=== PATIENT | male | born 1975 | race Caucasian/White ===

== ENCOUNTER 2016-11-21 00:58 | Emergency (ER) | payer OTHER | END 2016-11-21 04:43 | disposition left against medical advice (07) | LOC: CED 00:58 | DX: Z53.21 Procedure and treatment not carried out due to patient leaving prior to being seen by health care provider (principal) ==

== ENCOUNTER 2016-11-23 01:00 | Inpatient (IN) | payer OTHER ==
--- NOTE | ~2016-11-23 | PN ---
Unit #: [id number] #: [id number] Patient: EMRE CLAY [id number] [facility] [address] [place] [address] [id number] I MR#: [id number] NAME: EMRE CLAY ROOM: [facility] Age: 41 Sex: M Admission Date: 11/23/2016 : 1975 Attending Physician: Jose G Hinton M.D. Admitting Physician: Jose Ames PROGRESS NOTES DATE 11/28/2016 DISCUSSION Mr. Emre Clay is a 41-year-old male seen on November 28, 2016. Patient continues to report psychotic symptoms, reported voices telling him to harm himself, trouble sleeping, anxiety, agitation, and restlessness of his legs. Complete review of systems is unremarkable. MENTAL STATUS EXAMINATION General Appearance: Patient was dressed casually. Attention span and concentration, fair. Oriented in place and person. Mood and affect, sad, dysphoric, labile. Speech, monotone. Thought process, concrete. Patient denied any thoughts of harming self or others but reported having voices telling him to harm himself. Isolative, guarded. Poor hygiene and grooming. Withdrawn. Recent and remote memory, poor. Insight and judgment, poor. DIAGNOSES Psychosis not otherwise specified, rule out schizophrenia, chronic, paranoid type. ASSESSMENT Advised to continue with current medication. Will plan to consider Zyprexa if needed, add Thorazine 100 mg at bedtime for psychosis and sleep, Requip 1 mg twice daily, and continue with Cogentin. If needed, consider further adjustment of medication. Dictated by... Jose Ames/jesus TD: 11/29/2016 15:52 JOB #: [id number] Unit #: [id number] #: [id number] Patient: EMRE CLAY PROGRESS NOTES Page 1 of 1 X Jose G Hinton MD PROGRESS NOTE
--- NOTE | ~2016-11-23 | PN ---
Unit #: [id number] #: [id number] Patient: EMRE CLAY [id number] [facility] [address] [place] [address] [id number] I MR#: [id number] NAME: EMRE CLAY ROOM: 31 Age: 41 Sex: M Admission Date: 11/23/2016 : 1975 Attending Physician: Jose G Hinton M.D. Admitting Physician: Jose G Hinton M.D. Primary Care Physician: Primary Care Physician Becca MERINO PROGRESS NOTES DATE 12/01/2016 DISCUSSION Emre Clay is a 41-year-old male seen on 12/01/2016. Patient interviewed. Chart reviewed. Obtained information from nursing staff. Patient compliant, cooperative. Mood sad, dysphoric, flat affect, withdrawn, isolative. Patient reported voices are getting better, making progress. Compliant with medication. Complete review of system unremarkable. MENTAL STATUS EXAMINATION General appearance, patient dressed in hospital attire, isolative, flat affect. Sad, dysphoric mood. Oriented in place and person. Mood and affect sad, dysphoric, flat. Speech monotone. Thought process concrete. Patient denied any thoughts of harming self or others but guarded. Still having command hallucination but getting better. Recent and remote memory poor. Insight and judgement poor. DIAGNOSES 1. Psychosis NOS. 2. Schizophrenia, chronic paranoia type. ASSESSMENT/PLAN Advised to continue with current medication and therapeutic protocol. If needed, consider further adjustment of medication. Dictated by... Jose Ames/tanvir TD: 12/02/2016 22:03 JOB #: [id number] Unit #: [id number] #: [id number] Patient: EMRE CLAY PROGRESS NOTES Page 1 of 1 X Jose G Hinton MD PROGRESS NOTE
--- NOTE | ~2016-11-23 | PN ---
Unit #: [id number] #: [id number] Patient: EMRE CHAMPAGNE [id number] [facility] [address] [place] [address] [id number] I MR#: [id number] NAME: EMRE CHAMPAGNE ROOM: [facility] Age: 41 Sex: M Admission Date: 11/23/2016 : 1975 Attending Physician: Jose G Hinton M.D. Admitting Physician: Jose G Hinton M.D. Primary Care Physician: Primary Care Physician Becca THAO NOTES DATE 12/05/2016 DISCUSSION Emre is a 41-year-old male, seen on 12/05/2016. The patient interviewed, chart reviewed, and obtained information from the nursing staff. The patient was compliant and cooperative, able to maintain safe behavior, reports mood is better, decrease in anxiety, depression, hallucinations. No side effects from medication. Vital signs stable, 98.6, 115, 20, and 122/74. REVIEW OF SYSTEMS Complete review of systems unremarkable. MENTAL STATUS EXAMINATION General appearance: Patient dressed casually. Attention span and concentration, fair. Oriented in place and person. Mood and affect, labile. Speech, monotone. Thought process, concrete. The patient denied any thoughts of harming self or others. Recent and remote memory, poor. Insight and judgment, poor. DIAGNOSES 1. Psychosis, NOS. 2. Bipolar mood disorder, NOS. 3. Rule out schizophrenia, chronic paranoid type. ASSESSMENT/PLAN Advised to continue with the current medication and therapeutic protocol, with a plan to consider discharge next week and follow up in outpatient program. Dictated by... Jose Ames/kathi TD: 12/07/2016 06:12 JOB #: [id number] Unit #: [id number] #: [id number] Patient: EMRE CHAMPAGNE PROGRESS NOTES Page 1 of 1 X Jose G Hinton MD PROGRESS NOTE
--- NOTE | ~2016-11-23 | PN ---
Unit #: [id number] #: [id number] Patient: EMRE CHAMPAGNE [id number] [facility] [address] [place] [address] [id number] I MR#: [id number] NAME: EMRE CHAMPAGNE ROOM: P131 Age: 41 Sex: M Admission Date: 11/23/2016 : 1975 Attending Physician: Jose G Hinton M.D. Admitting Physician: Jose G Hinton M.D. Primary Care Physician: Primary Care Physician Becca MERINO PROGRESS NOTES DATE OF SERVICE: 12/03/2016 DISCUSSION Emre is a 41-year-old male, seen on 12/03/2016. The patient interviewed, chart reviewed, and obtained information from nursing staff. The patient is pleasant and cooperative during interview. Reports mood is getting better, decrease in voices and suicidal ideation. The patient is sleeping good. REVIEW OF SYSTEMS Complete review of systems is unremarkable. MENTAL STATUS EXAMINATION General appearance, the patient is dressed casually. Attention, span and concentration, fair. Oriented in time, place, and person. Mood and affect, sad and dysphoric. Speech, monotone. Thought process, concrete. The patient denied any thoughts of harming self or others, but still having hallucination and passive SI. Recent and remote memory, poor. Insight and judgment, poor. DIAGNOSES 1. Psychosis, not otherwise specified. 2. Rule out schizophrenia. 3. Rule out bipolar mood disorder. ASSESSMENT AND PLAN I advised to continue with current medication and therapeutic protocol. If needed, consider further adjustment of medication. Dictated by... Jose Ames/cathleen TD: 12/04/2016 13:22 JOB #: [id number] Unit #: [id number] #: [id number] Patient: EMRE CHAMPAGNE PROGRESS NOTES Page 1 of 1 X Jose G Hinton MD PROGRESS NOTE
--- NOTE | ~2016-11-23 | PN ---
Unit #: [id number] #: [id number] Patient: EMRE CLAY [id number] [facility] [address] [place] [address] [id number] MR#: [id number] NAME: EMRE CLAY ROOM: 31 Age: 41 Sex: M Admission Date: 11/23/2016 : 1975 Attending Physician: Jose G Hinton M.D. Admitting Physician: Jose Ames PROGRESS NOTES DATE OF SERVICE 11/27/2016 DISCUSSION Mr. Emre Clay is a 41-year-old male seen on November 27, 2016. Patient denied any side effects from medications but is still paranoid, isolative, flat affect, attending to internal stimuli, hearing voices, and seeing things. Complete review of systems is unremarkable. MENTAL STATUS EXAMINATION General Appearance: Patient was dressed casually in hospital attire. Attention span and concentration, fair. Oriented in place and person. Mood and affect, labile. Speech, monotone. Thought process, concrete. Patient denied any thoughts of harming self or others. Recent and remote memory, poor. Insight and judgment, poor. Patient having psychotic symptoms as mentioned above. DIAGNOSES 1. Psychosis not otherwise specified. 2. Schizophrenia, chronic, paranoid type. ASSESSMENT/PLAN Advised to continue with current medication and therapeutic protocol. Consider further adjustment of medication. Dictated by... Jose Ames/jesus TD: 11/29/2016 15:43 JOB #: [id number] Unit #: [id number] #: [id number] Patient: EMRE CLAY PROGRESS NOTES Page 1 of 1 X Jose G Hinton MD NOTE
--- NOTE | ~2016-11-23 | PA ---
Unit #: [id number] #: [id number] Patient: ANDREW CHAMPAGNE [id number] [facility] [address] [place] [address] [id number] I MR#: [id number] NAME: ANDREW CHAMPAGNE ROOM: P131 Age: 41 Sex: M Admission Date: 11/23/2016 : 1975 Date of Assessment: 11/23/2016 Attending Physician: Jose G Hinton M.D. Admitting Physician: Jose G Hinton M.D. Primary Care Physician: Primary Care Physician No PSYCHIATRIC ASSESSMENT INFORMANTS The patient reliability, fair informant and chart reliability, good. CHIEF COMPLAINT Depression and amphetamine abuse. HISTORY OF PRESENT ILLNESS Mr. Andrea is a 41-year-old male, presented complaining of suicidal ideation with multiple plans. The patient reported that he wanted to . The patient reported that it is too hard to live. The patient reported that he is suicidal and he will try different plans until he finds that works. The patient reports that he is severely depressed and anxiety, at least two prior suicide attempts. The patient reported numerous health issues including heart attack and diabetes. The patient is sad, dysphoric, and flat affect. Reported history of substance abuse. Reported use of methamphetamine and alcohol use 2 days ago. The patient needed inpatient admission at this time for psychiatric stabilization. PAST PSYCHIATRIC HISTORY Remarkable for history of [facility] and suicidal ideation at 2015 and history of receiving outpatient services through [facility]. FAMILY HISTORY Unremarkable for any history of any psychiatric illness. SOCIAL HISTORY No known history of any physical abuse, sexual abuse, or emotional abuse. MEDICAL HISTORY Remarkable for history of open-heart surgery in 2016, history of hypertension, increased lipids, increased cholesterol, and history of diabetes. MEDICATION HISTORY The patient is on Glucophage 500 mg b.i.d., Norvasc 5 mg b.i.d., and Catapres. ALLERGIES No known drug allergies. SUBSTANCE ABUSE HISTORY History of alcohol abuse and methamphetamine abuse. The patient reported Unit #: [id number] #: [id number] Patient: ANDREW CHAMPAGNE age of onset of tobacco 16; alcohol, 16; marijuana, 16; crack cocaine, 18; opioid, age of onset 28; synthetic drug, 28; and amphetamine, 28. The patient reported history of blackout. No history of any HIV or hepatitis. No history of IV drug abuse. History of withdrawal symptoms, depressed mood, tremor, irritability, sleep problem, appetite, and sweats. REVIEW OF SYSTEMS HEENT: Eyes, clear. Ears, nose, mouth, and throat; clear. CARDIOVASCULAR: Unremarkable. RESPIRATORY: Unremarkable. GI: Unremarkable. : Unremarkable. SKIN: Unremarkable. LYMPH NODE: Unremarkable. NEUROLOGIC: Unremarkable. ENDOCRINE: Unremarkable. HEMATOLOGIC: Unremarkable. ALLERGIC/IMMUNOLOGIC: Unremarkable. MUSCULOSKELETAL: Muscle strength and tone, no atrophy or abnormal movement. Gait normal. MENTAL STATUS EXAMINATION CONSTITUTIONAL: Measurement of vital signs; temperature 98.5, heart rate 70, respiratory rate 15, oxygen saturation 100%, and blood pressure 180/120. Height 5 feet 11 inches and weight 172 pounds. GENERAL APPEARANCE: The patient dressed casually. The patient did not show any facial deformity. MUSCULOSKELETAL: Please see above. PSYCHIATRIC EXAMINATION Description of speech, regular rate and normal volume. Description of thought process, goal directed. Description of association, intact. Description of abnormal psychotic thinking; the patient denied any hallucination or delusions, but suicidal ideation and depression. Denied any homicidal ideation. Substance abuse. Description of the patient's judgment: Concerning everyday activity, poor. Social situation, poor. Concerning psychiatric condition, poor. Complete mental status examination; oriented in time, place, and person. Recent and remote memory, poor. Attention span and concentration, fair. Language, intact. Fund of knowledge, fair to poor. Mood and affect, sad and depressed. Insight and judgment, fair to poor. ASSETS AND LIABILITIES Assets, the patient is articulate and able to take care of his ADL. Liability, history of depression and substance abuse. ADMITTING DIAGNOSES Psychiatric: Bipolar mood disorder, recurrent, moderate, depressed, F31.9; amphetamine abuse disorder, severe, F15.20; and alcohol use disorder, severe, F10.20. Secondary diagnosis: Deferred. Medical diagnoses: History of coronary artery disease, three-vessel coronary artery bypass grafting in 01/2016; high blood pressure; diabetes; and hyperlipidemia. Stressors: Psychosocial stressors. Unit #: [id number] #: [id number] Patient: ANDREW CHAMPAGNE PSYCHIATRIC PLAN AND TREATMENT GOAL AND DISCHARGE PLAN 1. Advised to admit the patient on the inpatient unit. Provide safe, supportive, and structured environment. 2. Ordered labs; CBC, CMP, UA, and UDS. 3. Medical consult to evaluate the patient's medical condition. 4. SP1 precaution. 5. Advised to resume home medication and advised Zyprexa 10 mg b.i.d. for psychotic symptom and mood stabilization. 6. The patient to attend all the programing, group therapy, individual therapy, and chemical dependency group. TREATMENT GOAL To attain euthymic mood, gain insight into his problem, and learn coping skills. DISCHARGE PLAN Plan to stabilize the patient and consider follow up in outpatient program. ESTIMATED LENGTH OF STAY 2 weeks. Dictated by... Jose G Hinton M.D. LEONIDAS/cathleen TD: 11/23/2016 19:46 JOB #: [id number] PSYCHIATRIC ASSESSMENT Page 1 of 1 X Jose G Hinton MD X PSYCHIATRIC ASSESSMENT
--- NOTE | ~2016-11-23 | PN ---
Unit #: [id number] #: [id number] Patient: EMRE CLAY [id number] [facility] [address] [place] [address] [id number] MR#: [id number] NAME: EMRE CLAY ROOM: [facility] Age: 41 Sex: M Admission Date: 11/23/2016 : 1975 Attending Physician: Jose G Hinton M.D. Admitting Physician: Jose G Hinton M.D. Primary Care Physician: Primary Care Physician Becca THAO NOTES DATE OF SERVICE 11/24/2016 DISCUSSION Emre Clay is a 41-year-old male seen on 11/24/2016. The patient interviewed, chart reviewed. Obtained information from nursing staff. The patient sad, depressed, withdrawn, isolative, guarded. The patient reported still hearing things, seeing things, delusion, paranoia, mood lability, isolative, guarded. Complete Review of Systems: Unremarkable. MENTAL STATUS EXAMINATION General Appearance: The patient dressed in hospital attire. Attention span, concentration: Poor. Oriented in place and person. Mood and affect: Sad, depressed. Speech: Monotone. Thought process: [place]. The patient denied any thoughts of harming self or others but guarded, paranoid. Recent and remote memory: Poor. Insight and judgment: Poor. DIAGNOSES 1. Psychosis not otherwise specified. 2. Bipolar mood disorder with psychotic feature, depressed, recurrent, F31.9. 3. Amphetamine abuse disorder, severe. 4. Alcohol use disorder, severe. ASSESSMENT/PLAN Advised to continue with current medication and therapeutic protocol. If needed, consider further adjustment of medication. Dictated by... Jose Ames/jim TD: 11/25/2016 11:20 JOB #: [id number] Unit #: [id number] #: [id number] Patient: EMRE CLAY CARAELSA KEESHA NOTES Page 1 of 1 X Jose G Hinton MD PROGRESS NOTE
--- NOTE | ~2016-11-23 | HP ---
Unit #: [id number] #: [id number] Patient: ANDREW CHAMPAGNE [id number] [place] [address] [id number] I MR#: [id number] NAME: ANDREW CHAMPAGNE ROOM: P131 Age: 41 Sex: M Admission Date: 11/23/2016 : 1975 Attending Physician: Jose G Hinton M.D. Admitting Physician: Jose G Hinton M.D. Primary Care Physician: Primary Care Physician No HISTORY AND PHYSICAL HISTORY OF PRESENT ILLNESS Hay is a 41 year old admitted to [facility] after reporting auditory hallucinations. He has had other admissions to this facility for the same. PAST MEDICAL HISTORY 1. Coronary artery disease a. Three vessel CABG, 01/2016 2. High blood pressure 3. Diabetes mellitus 4. Hyperlipidemia PAST SURGICAL HISTORY As above ALLERGIES No known drug allergies. SOCIAL HISTORY Smokes one pack per day. Denies alcohol and illicit drug use. FAMILY HISTORY Medically noncontributory. REVIEW OF SYSTEMS CONSTITUTIONAL: No fever or chills. HEENT: Denies any sore throat, ear pain or runny nose. CARDIOVASCULAR: Denies chest pain, irregular heart rhythm or palpitations. CHEST: Denies shortness of breath or cough. No hemoptysis. GASTROINTESTINAL: Denies nausea, vomiting, diarrhea or chronic constipation. ENDOCRINE: Denies history of increased thirst or urination. No recent significant weight loss or gain. GENITOURINARY: Denies dysuria, frequency, or hematuria. SKIN: Denies any rashes. HEMATOLOGIC: Denies history of increased bleeding or bruising. MUSCULOSKELETAL: Denies any hot, swollen joints. No generalized muscle pain. NEUROLOGIC: Denies problems with vision or speech. No frequent, severe headaches. No numbness, tingling or weakness in any extremities. Denies loss of bladder or bowel control. CURRENT MEDICATIONS Unit #: [id number] #: [id number] Patient: ANDREW CHAMPAGNE 1. Zyprexa 10 mg b.i.d. 2. Lorazepam 1 mg q 6 hours p.r.n. 3. Milk of Magnesia p.r.n. 4. Maalox p.r.n. 5. Tylenol p.r.n. 6. Nicotine patch 7 mg q day PHYSICAL EXAMINATION GENERAL: Alert, well-nourished, in no apparent distress. VITAL SIGNS: Blood pressure 180/120, heart rate 70, respirations 16, temperature 98.6. WEIGHT: 172 pounds. HEIGHT: 5'11". SKIN: Warm and dry without rash or lesion. HEENT: Normocephalic. TMs not viewed. Oral and nasal passages clear. Conjunctivae clear. Pupils equal, round and reactive to light and accommodation. Extraocular movements intact. NECK: Supple without lymphadenopathy or thyromegaly. HEART: Regular rate and rhythm without murmur. LUNGS: Clear. ABDOMEN: Soft, nontender. : Not done. EXTREMITIES: No evidence of cyanosis, clubbing or edema. Moves all extremities without focal deficit. NEUROLOGICAL: Grossly within normal limits. Cranial Nerves: II: Visual negron are intact. III, IV AND : Extraocular movements are intact. Pupils are equal, round and reactive to light. V: Facial sensation is grossly normal. VII: Facial movements and expression are normal. VIII: Auditory acuity grossly intact. IX, X: Uvula is midline. Phonation is normal. XI: Patient shrugs shoulders and turns head normally. XII: Tongue protrudes in the midline. Sensory and Motor Function: Sensory and motor sensation is grossly normal. Motor: moves all extremities well. Coordination: Gait is normal. Deep Tendon Reflexes: Intact. IMPRESSION 1. Psychiatric admission 2. High blood pressure, not controlled on admission. He is admitted on no blood pressure medications. RECOMMENDATIONS PSYCHIATRIC: Per psychiatrist. MEDICAL: 1. I see no contraindications to participating in facility's activities. 2. Start Norvasc 1 p.o. q day. The patient needs to follow up with PCP. MEDICAL PROGNOSIS Good. MEDICAL CONDITION Stable. Unit #: [id number] #: [id number] Patient: ANDREW CHAMPAGNE Dictated by... Mary Kerr P.A.-C. for Jose Miles/santana TD: 11/24/2016 03:15 JOB #: [id number] HISTORY AND PHYSICAL Page 1 of 1 X Mary Kerr X HISTORY AND PHYSICAL
--- NOTE | ~2016-11-23 | EKG ---
PATIENT: ANDREW CHAMPAGNE UNIT #: [id number] Ventricular Rate: 87 BPM Atrial Rate: 87 BPM P-R Interval: 136 ms QRS Duration: 98 ms Q-T Interval: 364 ms QTC Calculation(Bezet): 438 ms P Linton: 36 degrees Calculated R Linton: 32 degrees Calculated T Linton: 71 degrees Diagnosis Line: Normal sinus rhythm Diagnosis Line: Possible Left atrial enlargement Diagnosis Line: Possible Inferior infarct , age undetermined Diagnosis Line: Abnormal ECG Diagnosis Line: No previous ECGs available Diagnosis Line: Confirmed by BOBY ESCOBEDO MD ([id number]) on 12/02/2016 Diagnosis Line: 6:23:16 PM INTERPRETING MD: FANNY PEREZ
--- NOTE | ~2016-11-23 | PN ---
Unit #: [id number] #: [id number] Patient: ANDREW CHAMPAGNE [id number] [facility] [address] [place] [address] [id number] I MR#: [id number] NAME: ANDREW CHAMPAGNE ROOM: [facility] Age: 41 Sex: M Admission Date: 11/23/2016 : 1975 Attending Physician: Jose G Hinton M.D. Admitting Physician: Jose G Hinton M.D. Primary Care Physician: Primary Care Physician Becca THAO NOTES DATE OF SERVICE 11/26/2016 DISCUSSION Mr. Andrea is a 41-year-old male. The patient interviewed, chart reviewed. Obtained information from nursing staff. The patient reported having restlessness of his legs. The patient was started on Haldol having side effects. The patient still reporting hallucination, paranoid, delusions, attending to internal stimuli, mood lability. Isolative, guarded, poor hygiene and grooming. Complete Review of Systems: Unremarkable. MENTAL STATUS EXAMINATION General Appearance: The patient dressed in hospital attire. Attention span, concentration: Fair. Oriented in place and person. Mood and affect: Sad, dysphoric. Speech: Monotone. Thought process: [place]. The patient reported hearing things, seeing things, paranoia, mood lability. Isolative, guarded. Recent and remote memory: Poor. Insight and judgment: Poor. DIAGNOSES 1. Psychosis not otherwise specified. 2. Rule out schizophrenia, chronic, paranoid type. ASSESSMENT/PLAN Advised to continue with current medication and therapeutic protocol. If needed, consider further adjustment of medication with a plan to discontinue Haldol at this time due to side effects and consider adjusting the dosage of Zyprexa. Dictated by... Jose Ames/jim TD: 11/27/2016 14:00 JOB #: [id number] Unit #: [id number] #: [id number] Patient: ANDREW CHAMPAGNE PROGRESS NOTES Page 1 of 1 X Jose G Hinton MD PROGRESS NOTE
--- NOTE | ~2016-11-23 | CO ---
Unit #: [id number] #: [id number] Patient: ANDREW CHAMPAGNE [id number] [facility] [address] [place] [address] [id number] I MR#: [id number] NAME: ANDREW CHAMPAGNE ROOM: 31 Age: 41 Sex: M Admission Date: 11/23/2016 : 1975 Attending Physician: Jose G Hinton M.D. Primary Care Physician: Primary Care Physician No Consultation Date: 11/23/2016 CONSULTATION REPORT SHANTI Guido is a 41-year-old with history of high blood pressure, diabetes, and heart disease. He reports that he is noncompliant with most if not all of his medications. We have been asked to see him for high blood pressure and diabetic medication. Please see H and P dated 11/23/2016 for history and exam. We will start him on Norvasc 5 mg one p.o. daily and Glucophage 500 mg p.o. b.i.d. Continue to monitor blood pressure every shift. We would consider adding low-dose beta-danya. The patient needs to follow up with PCP. Dictated by... Mary Kerr P.A.-C. for Jose Miles/cathleen TD: 11/24/2016 16:14 JOB #: [id number] CONSULTATION REPORT Page 1 of 1 X Mary Kerr CONSULTATION REPORT
--- NOTE | ~2016-11-23 | PN ---
Unit #: [id number] #: [id number] Patient: EMRE CLAY [id number] [facility] [address] [place] [address] [id number] I MR#: [id number] NAME: EMRE CLAY ROOM: 31 Age: 41 Sex: M Admission Date: 11/23/2016 : 1975 Attending Physician: Jose G Hinton M.D. Admitting Physician: Jose G Hinton M.D. Primary Care Physician: Primary Care Physician Becca MERINO PROGRESS NOTES DATE OF SERVICE 12/02/16 DISCUSSION Emre Clay is a 41-year-old male seen on 12/02/16. Patient interviewed, chart reviewed, I obtained information from nursing staff. Patient reported that the voices are better, decreasing in anxiety, decreasing paranoia. Reports thoughts of harming self getting better. Vital signs: 98.3, 88, 16, 122/77. No side effect from medication. COMPLETE REVIEW OF SYSTEMS Unremarkable. MENTAL STATUS EXAMINATION GENERAL APPEARANCE: Patient dressed in hospital attire. Isolative, guarded. ATTENTION SPAN AND CONCENTRATION: Fair. Oriented in time, place and person. MOOD AND AFFECT: Sad, dysphoric, flat. SPEECH: Monotone. THOUGHT PROCESS: [place]. Patient reported still having command hallucination but decreased in intensity. Guarded, paranoid. RECENT AND REMOTE MEMORY: Poor. INSIGHT AND JUDGMENT: Poor. DIAGNOSES Psychosis, NOS Major depressive disorder with psychotic feature ASSESSMENT/PLAN Advised to continue with current medication and therapeutic protocol. If needed, consider further adjustment in medication. Dictated by... Jose Ames/sudha Unit #: [id number] #: [id number] Patient: EMRE CLAY TD: 12/03/2016 03:35 JOB #: [id number] [facility] PROGRESS NOTES Page 1 of 1 X Jose G Hinton MD PROGRESS NOTE
--- NOTE | ~2016-11-23 | PN ---
Unit #: [id number] #: [id number] Patient: EMRE CHAMPAGNE [id number] [facility] [address] [place] [address] [id number] I MR#: [id number] NAME: EMRE CHAMPAGNE ROOM: [facility] Age: 41 Sex: M Admission Date: 11/23/2016 : 1975 Attending Physician: Jose G Hinton M.D. Admitting Physician: Jose Ames PROGRESS NOTES DATE OF SERVICE: 12/04/2016 DISCUSSION Emre is a 41-year-old male, seen on 12/04/2016. The patient interviewed, chart reviewed, and obtained information from nursing staff. The patient was compliant, cooperative. Mood; sad and dysphoric. Reports making progress, decrease in anxiety, hallucination, and able to contract for safety. REVIEW OF SYSTEMS Complete review of systems unremarkable. MENTAL STATUS EXAMINATION General appearance, the patient dressed casually in hospital attire. Vital signs; temperature 98.2, pulse 82, respirations 16, blood pressure 128/69. Oriented in place and person. Mood and affect, sad and dysphoric. Speech, monotone. Thought process, concrete. The patient denied any thoughts of harming self or others, but guarded. Recent and remote memory, poor. Insight and judgment, poor. DIAGNOSIS Bipolar mood disorder, not otherwise specified. ASSESSMENT AND PLAN Advised to continue with current medication and therapeutic protocol. If needed, consider further adjustment of medication. Dictated by... Jose Ames/cathleen TD: 12/05/2016 23:59 JOB #: [id number] Unit #: [id number] #: [id number] Patient: EMRE CHAMPAGNE PROGRESS NOTES Page 1 of 1 X Jose G Hinton MD NOTE
--- NOTE | ~2016-11-23 | DS ---
Unit #: [id number] #: [id number] Patient: ANDREW CHAMPAGNE [id number] [facility] [address] [place] [address] [id number] I MR#: [id number] NAME: ANDREW CHAMPAGNE ROOM: [facility] Age: 41 Sex: M Admission Date: 11/23/2016 : 1975 Discharge Date: 12/06/2016 Attending Physician: Jose G Hinton M.D. Primary Care Physician: Primary Care Physician No DISCHARGE SUMMARY REASON FOR ADMISSION Psychosis. DIAGNOSTIC STUDIES LABORATORY RESULTS: Remarkable for glucose 195. Urine drug screen, negative. HOSPITAL COURSE The patient was admitted to inpatient unit on 11/23/2016 and discharged on 12/06/2016. The patient was treated on the inpatient unit with group therapy, individual therapy, medication management, expressive therapy, and structured milieu. The patient was responsive to treatment, showed improvement, subsequently the patient was discharged with a plan to follow up at [facility]. DISCHARGE MEDICATIONS Zyprexa 20 mg daily for psychosis, Norvasc 5 mg daily for hypertension, Glucophage 500 mg b.i.d. for diabetes, Cogentin 1 mg at bedtime for EPS symptom, Desyrel 100 mg at bedtime for sleep, Requip 1 mg at bedtime for restless legs syndrome, Thorazine 100 mg at bedtime for psychosis. The patient needed 2 antipsychotics as the patient did not do well with one. The patient has tried Zyprexa, Thorazine, and Risperdal. The patient is not a candidate for clozapine at this time. DISCHARGE DIAGNOSES Psychiatric: Bipolar mood disorder with psychotic feature, recurrent, sever, F31.9; rule out schizophrenia, chronic, paranoid type. Secondary diagnosis: Deferred. Medical diagnosis: History of hypertension, open heart surgery, history of increased lipids, diabetes mellitus. Stressors: Psychosocial stressor. DISCHARGE INSTRUCTIONS The patient to follow up in outpatient clinic as per social work nurse. CONDITION ON DISCHARGE The patient was pleasant and cooperative. Denied any psychotic symptoms or any suicidal ideation. PROGNOSIS Unit #: [id number] #: [id number] Patient: ANDREW CHAMPAGNE Guarded. DIET AND ACTIVITY As tolerated. DISCHARGE MEDICATIONS Zyprexa 20 mg daily for psychosis, Norvasc 5 mg daily for hypertension, Glucophage 500 mg b.i.d. for diabetes, Cogentin 1 mg at bedtime for EPS symptom, Desyrel 100 mg at bedtime for sleep, Requip 1 mg at bedtime for restless legs syndrome, Thorazine 100 mg b.i.d. for psychosis. The patient was tried on Zyprexa, Thorazine, and Risperdal. The patient is not a candidate for Thorazine because of noncompliance, some recommending to taper off Thorazine over the next 6 months once the patient is stable. Adiel TD: 12/06/2016 21:07 JOB #: [id number] Dictated by... Jose Ames TD: 12/06/2016 19:46 JOB #: [id number] DISCHARGE SUMMARY Page 1 of 1 X Jose G Hinton MD DISCHARGE SUMMARY
--- NOTE | ~2016-11-23 | PN ---
Unit #: [id number] #: [id number] Patient: EMRE CLAY [id number] [facility] [address] [place] [address] [id number] MR#: [id number] NAME: EMRE CLAY ROOM: 31 Age: 41 Sex: M Admission Date: 11/23/2016 : 1975 Attending Physician: Jose G Hinton M.D. Admitting Physician: Jose G Hinton M.D. Primary Care Physician: Primary Care Physician Becca MERINO PROGRESS NOTES DATE 11/29/2016 DISCUSSION Emre Clay is a 41-year-old male seen on 11/29/2016. Patient continues to report hearing voices. Voices telling him to harm himself but reports some improvement with the medication but still having restlessness of his legs, isolative, guarded, flat affect. Complete review of system unremarkable. MENTAL STATUS EXAMINATION General appearance, patient dressed casually in hospital attire, isolative, guarded, flat affect. Attention span, concentration fair. Oriented in place and person. Mood and affect sad, depressed. Speech monotone. Thought process concrete. Patient reported having hallucinations, suicidal ideation. Recent and remote memory poor. Insight and judgement poor. DIAGNOSES 1. Psychosis NOS. 2. Mood disorder NOS. ASSESSMENT/PLAN Advised to continue with current medication and therapeutic protocol. If needed, consider further adjustment of medication. Dictated by... Jose Ames/tanvir TD: 11/30/2016 22:15 JOB #: [id number] Unit #: [id number] #: [id number] Patient: EMRE CLAY PROGRESS NOTES Page 1 of 1 X Jose G Hinton MD PROGRESS NOTE
--- NOTE | ~2016-11-23 | PN ---
Unit #: [id number] #: [id number] Patient: EMRE CLAY [id number] [facility] [address] [place] [address] [id number] I MR#: [id number] NAME: EMRE CLAY ROOM: 31 Age: 41 Sex: M Admission Date: 11/23/2016 : 1975 Attending Physician: Jose G Hinton M.D. Admitting Physician: Jose G Hinton M.D. Primary Care Physician: Primary Care Physician Becca MERINO PROGRESS NOTES DATE 11/30/2016 DISCUSSION Emre Clay is a 41-year-old male seen on 11/30/2016. Patient continues to report hearing voices, paranoia, isolative, guarded, poor hygiene, grooming, requested for larger portion. Patient tolerating medication fairly well. Still having some restlessness of his legs but no aggression. Complete review of system unremarkable. MENTAL STATUS EXAMINATION General appearance, patient dressed casually in hospital attire. Attention span, concentration poor. Oriented in place and person. Mood and affect was labile. Thought process goal-directed. Patient denied any thoughts of harming self or others but having hallucinations. Reported command hallucinations. Recent and remote memory poor. Insight and judgement poor. DIAGNOSIS 1. Psychosis NOS. 2. Schizophrenia, chronic paranoid type. ASSESSMENT/PLAN Advised to continue with current medication and therapeutic protocol. If needed, consider further adjustment of medication. Dictated by... Jose Ames/tanvir TD: 12/01/2016 20:12 JOB #: [id number] Unit #: [id number] #: [id number] Patient: EMRE CLAY PROGRESS NOTES Page 1 of 1 X Jose G Hinton MD X PROGRESS NOTE
--- NOTE | ~2016-11-23 | PN ---
Unit #: [id number] #: [id number] Patient: EMRE CLAY [id number] [facility] [address] [place] [address] [id number] I MR#: [id number] NAME: EMRE CLAY ROOM: 31 Age: 41 Sex: M Admission Date: 11/23/2016 : 1975 Attending Physician: Jose G Hinton M.D. Admitting Physician: Jose G Hinton M.D. Primary Care Physician: Primary Care Physician Becca THAO NOTES DATE OF SERVICE 11/25/2016 DISCUSSION Emre Clay is a 41-year-old male seen on 11/25/2016. The patient interviewed, chart reviewed. Obtained information from nursing staff. The patient compliant, cooperative. Mood sad, dysphoric, flat affect, guarded, withdrawn, isolative. The patient reported that he was still hearing voices. Disorganized thought process. Paranoid, racing thought process, delusions. Isolative, guarded. Complete Review of Systems: Unremarkable. MENTAL STATUS EXAMINATION General Appearance: The patient dressed casually. Attention span, concentration: Poor. Oriented in place and person. Mood and affect labile. Speech: Monotone. Thought process: [place], guarded, paranoid, delusions, paranoia. Recent and remote memory: Poor. Insight and judgment: Poor. DIAGNOSIS Psychosis not otherwise specified. ASSESSMENT/PLAN Advised to continue with current medication and therapeutic protocol. If needed, consider further adjustment of medication. Dictated by... Jose Ames/jim TD: 11/26/2016 07:25 JOB #: [id number] Unit #: [id number] #: [id number] Patient: EMRE CLAY PROGRESS NOTES Page 1 of 1 X Jose G Hinton MD PROGRESS NOTE
[2016-11-24 12:22] LABS: BASOPHIL# 0.1 X10e3 (0-0.3); BASOPHIL% 1.1 % (0-2.5); EOSINOPHIL% 0.6 % (0.0-7.0); HEMATOCRIT 43.8 % (38.0-50.0); HEMOGLOBIN 14.4 gm/dL (13.0-16.0); LYMPHOCYTE# 1.7 X10e3 (1.0-3.5); LYMPHOCYTE% 31.5 % (17.0-45.0); MEAN CELL VOLUME 93.7 FL (83-96); MEAN CORPUSCULAR HEMOGLOBIN 30.7 PG (28-34); MEAN CORPUSCULAR HGB CONC 32.8 g/dL (30-36); MEAN PLATELET VOLUME 8.3 FL (6.5-11.5); MONOCYTE# 0.3 X10e3 (0-1.0); MONOCYTE% 5.3 % (3.0-12.0); NEUTROPHIL# 3.3 X10e3 (1.5-7.1); NEUTROPHIL% 61.5 % (40-75); PLATELET COUNT 198 X10e3 (140-420); RED BLOOD COUNT 4.68 X10e (3.90-5.60); WHITE BLOOD COUNT 5.3 X10e3 (4.0-10.5)
[2016-11-24 12:28] LABS: DIFF IND NO
[2016-11-24 12:37] LABS: ALBUMIN SERUM 3.6 g/dL (3.5-5.0); BILIRUBIN,TOTAL 0.5 mg/dL (0.2-2.0); CALCIUM SERUM 8.9 mg/dL (8.4-10.2); CREATININE SERUM 0.8 mg/dL (0.6-1.4); GLOM FILT RATE Estimated 109.5 mL/min (>60); PROTEIN TOTAL SERUM 5.9 g/dL (6.0-8.3)
== END 2016-12-06 10:30 | disposition home or self-care (01) | DRG 885 ==
LOC: P1E 12:11 → P1S 12:11 → P1E 14:10 → P1S 18:54
PROVIDERS: Psychiatry & Neurology Psychiatry
DX: F31.32 Bipolar disorder, current episode depressed, moderate (principal); F15.20 Other stimulant dependence, uncomplicated; I10 Essential (primary) hypertension; F10.20 Alcohol dependence, uncomplicated; I25.10 Atherosclerotic heart disease of native coronary artery without angina pectoris; Z95.1 Presence of aortocoronary bypass graft; E11.9 Type 2 diabetes mellitus without complications; E78.5 Hyperlipidemia, unspecified; F29 Unspecified psychosis not due to a substance or known physiological condition; F20.0 Paranoid schizophrenia; F41.9 Anxiety disorder, unspecified
CPT/HCPCS: 80053; 82947; 85025; 93005